=== PATIENT | male | born 1935 | race Caucasian/White ===

== ENCOUNTER 2020-01-20 10:18 | Emergency (ER) | payer MEDICARE, OTHER ==
--- NOTE | 2020-01-20 11:30 | ED Physician Documentation ---
PD HPI ABD PAIN - Stated complaint Stated Complaint: MALE - Chief complaint Chief Complaint: Abd Pain - History obtained from History obtained from: Patient - History of Present Illness Timing - onset: How many days ago (2-3) Timing - duration: Days (2-3) Timing - details: Gradual onset, Still present Quality: Cramping, Aching, Pain Location: RLQ, LLQ, Other Radiation: No: Chest, Lower back Improved by: No: Eating Worsened by: Eating Associated symptoms: Nausea, Constipation (last BM 2 days ago, but was small and firm prior to that.). No: Fever, Vomiting, Diarrhea, Dysuria, Hematuria Similar symptoms before: Has not had sx before Review of Systems Constitutional: denies: Fever, Chills Nose: denies: Rhinorrhea / runny nose, Congestion Throat: denies: Sore throat Respiratory: denies: Cough Musculoskeletal: denies: Neck pain, Back pain Neurologic: reports: Generalized weakness. denies: Focal weakness, Numbness, Near syncope Endocrine: denies: Weight loss PD PAST MEDICAL HISTORY - Past Medical History Past Medical History: No Cardiovascular: None Respiratory: None Endocrine/Autoimmune: None GI: None : None HEENT: None Psych: None Musculoskeletal: None Derm: None - Past Surgical History Past Surgical History: No - Present Medications Home Medications: Ambulatory Orders Medication Instructions Recorded Confirmed Allopurinol [Zyloprim] 300 mg ORAL DAILY 01/20/20 01/20/20 Aspirin [Aspirin EC] 81 mg PO DAILY 01/20/20 01/20/20 Atorvastatin Calcium 20 mg PO DAILY 01/20/20 01/20/20 Citalopram Hydrobromide [Celexa] 20 mg ORAL DAILY 01/20/20 01/20/20 Levothyroxine Sodium 150 mcg PO DAILY 01/20/20 01/20/20 Lisinopril [Zestril] 20 mg PO DAILY 01/20/20 01/20/20 Magnesium Oxide [Mag Ox] 400 mg PO DAILY 01/20/20 01/20/20 Multivitamin [Multiple Vitamins] 1 tab ORAL DAILY 01/20/20 01/20/20 Omeprazole 20 mg PO BID 01/20/20 01/20/20 Polyethylene Glycol 3350 [Miralax] 17 gm PO DAILY PRN #238 gm 01/20/20 Vit A/Vit C/Vit E/Zinc/Copper 2 cap ORAL DAILY 01/20/20 01/20/20 [Preservision Areds Softgel] atenoloL [Atenolol] 25 mg PO DAILY 01/20/20 01/20/20 - Allergies Allergies/Adverse Reactions: Allergies Allergy/AdvReac Type Severity Reaction Status Date / Time No Known Allergies Allergy Unknown Verified 01/20/20 10:30 - Social History Does the pt smoke?: No Smoking Status: Never smoker Does the pt drink ETOH?: No Does the pt have substance abuse?: No - Immunizations Immunizations are current?: Yes - POLST Patient has POLST: No PD ED PE NORMAL - Vitals Vital signs reviewed: Yes - General General: Alert and oriented X 3, No acute distress, Well developed/nourished - HEENT HEENT: Moist mucous membranes, Pharynx benign - Neck Neck: Supple, no meningeal sign, No adenopathy - Cardiac Cardiac: RRR, No murmur - Respiratory Respiratory: Clear bilaterally - Abdomen Abdomen: Normal bowel sounds, Soft, Non tender, Non distended - Rectal Rectal: Other (no hemorrhoids. Brown stool on digit. Minimal stool/ no impaction on digitial rectal) - Derm Derm: Normal color, Warm and dry - Extremities Extremities: Normal ROM s pain, No edema, No calf tenderness / cord - Neuro Neuro: Alert and oriented X 3, No motor deficit, Normal speech Results - Vitals Vitals: Vital Signs - 24 hr 01/20/20 01/20/20 01/20/20 10:31 11:00 13:24 Temperature 37 C Heart Rate 68 97 88 Respiratory 16 17 14 Rate Blood Pressure 162/92 H 134/119 H 169/95 H O2 Saturation 96 98 96 01/20/20 15:08 Temperature 36.8 C Heart Rate 91 Respiratory 20 Rate Blood Pressure 191/92 H O2 Saturation 100 Oxygen O2 Source Room air - Labs Labs: Laboratory Tests 01/20/20 01/20/20 01/20/20 12:20 12:20 12:30 WBC 6.9 RBC 4.17 L Hgb 14.1 Hct 41.9 L MCV 100.5 H MCH 33.8 H MCHC 33.7 RDW 13.5 Plt Count 188 MPV 9.5 Neut # (Auto) 5.0 Lymph # (Auto) 1.4 L [place] # (Auto) 0.4 Eos # (Auto) 0.0 Baso # (Auto) 0.0 Absolute Nucleated RBC 0.00 Nucleated RBC % 0.0 Sodium 140 Potassium 4.4 Chloride 104 Carbon Dioxide 27 Anion Gap 9.0 BUN 14 Creatinine 1.0 Estimated GFR (MDRD) 71 L Glucose 130 H Calcium 9.2 Magnesium 1.8 Total Bilirubin 1.0 AST 23 ALT 21 Alkaline Phosphatase 105 Total Protein 7.2 Albumin 3.7 Globulin 3.5 Albumin/Globulin Ratio 1.1 Lipase 26 Urine Color YELLOW Urine Clarity CLEAR Urine pH 5.5 Ur Specific [place] 1.010 Urine Protein NEGATIVE Urine Glucose (UA) NEGATIVE Urine Ketones NEGATIVE Urine Occult Blood NEGATIVE Urine Nitrite NEGATIVE Urine Bilirubin NEGATIVE Urine Urobilinogen 0.2 (NORMAL) Ur Leukocyte Esterase NEGATIVE Ur Microscopic Review NOT INDICATED Urine Culture Comments NOT INDICATED - Rads (name of study) abd CT Radiology: Prelim report reviewed (no acute process), See rad report PD MEDICAL DECISION MAKING - ED course Complexity details: reviewed results, re-evaluated patient (not any stool out yet (just some of the emena fluid with soft brown/small stools)), considered differential (seems more uncomfortable than from just 2 days of constipation. Can get labs and CT to ensure no other process such as diverticulitis, UTI, focal lesions, other processes. ), d/w patient Departure - Departure Disposition: 01 Home, Self Care Clinical Impression: Bilateral lower abdominal cramping Constipation Qualifiers: Constipation type: unspecified constipation type Qualified Code(s): K59.00 - Constipation, unspecified Condition: Stable Record reviewed to determine appropriate education?: Yes Instructions: ED Constipation Follow-Up: Mohit Bolton MD [Primary Care Provider] - Prescriptions: Polyethylene Glycol 3350 [Miralax] 17 gm PO DAILY PRN #238 gm PRN Reason: Constipation Comments: Use the MiraLAX 17 g dose every 1-2 hours today and into tomorrow as needed to have soft stool movement. Stop at that point as you do not want to over treat it. After that then continue a dose daily for the next week or so just to keep it softened. Your labs and CT scan did not show any acute process at this point so presume just constipation. Recheck if any other symptoms or problems develop. Discharge Date/Time: 01/20/20 15:12
[2020-01-20] MEDS ORDERED: MINERAL OIL ENEMA 133 ML BOTTLE RC STA (12:07)
[2020-01-20] MEDS ORDERED: SODIUM CHLORIDE 0.9% 1,000 ML IV STA (12:07)
[2020-01-20] MEDS ORDERED: polyethylene glycoL 3350 17 GM PACKET PO STA (12:07)
[2020-01-20 12:29] LABS: BASOPHILS % (AUTO) 0.3 %; EOSINOPHILS % (AUTO) 0.3 %; HGB - HEMOGLOBIN 14.1 g/dL (14.0-18.0); LYMPHOCYTES # (AUTO) 1.4 10^3/uL (1.5-3.5); LYMPHOCYTES % (AUTO) 20.9 %; MEAN CORPUSCULAR HEMOGLOBIN 33.8 pg (27.0-31.0); MEAN CORPUSCULAR HGB CONC 33.7 g/dL (32.0-36.0); MEAN CORPUSCULAR VOLUME 100.5 fL (80.0-94.0); MEAN PLATELET VOLUME 9.5 fL (7.4-11.4); MONOCYTES # (AUTO) 0.4 10^3/uL (0.0-1.0); MONOCYTES % (AUTO) 5.2 %; PLT - PLATELET COUNT 188 10^3/uL (130-450); RED BLOOD COUNT 4.17 10^6/uL (4.70-6.10); RED CELL DISTRIBUTION WIDTH 13.5 % (12.0-15.0); WHITE BLOOD COUNT 6.9 x10^3/uL (4.8-10.8)
[2020-01-20 12:42] LABS: ALBUMIN 3.7 g/dL (3.2-5.5); ALBUMIN/GLOBULIN RATIO 1.1 (1.0-2.2); CALCIUM 9.2 mg/dL (8.5-10.3); MAGNESIUM 1.8 mg/dL (1.7-2.8); TOTAL PROTEIN 7.2 g/dL (6.7-8.2)
[2020-01-20 12:54] LABS: BILIRUBIN,URINE NEGATIVE (NEGATIVE); GLUCOSE, URINE (UA) NEGATIVE (NEGATIVE); KETONES,URINE (UA) NEGATIVE (NEGATIVE); LEUKOCYTE ESTERASE, URINE NEGATIVE (NEGATIVE); NITRITE,URINE NEGATIVE (NEGATIVE); OCCULT BLOOD,URINE NEGATIVE (NEGATIVE); PH,URINE 5.5 PH (5.0-7.5); PROTEIN,URINE NEGATIVE (NEGATIVE); UROBILINOGEN,URINE 0.2 (NORMAL) E.U./dL (NORMAL)
[2020-01-20 12:59] LABS: CLARITY,URINE CLEAR (CLEAR)
[2020-01-20] MEDS ORDERED: IOVERSOL 320 100 ML VIAL IVP ONE ×2 (13:16→16:04)
--- NOTE | 2020-01-20 14:13 | CT Report ---
Reason: abd fullness/ lower abd pain Procedure Date: 01/20/2020 Accession Number: [id number] / [id number] Procedure: CT - Abdomen/Pelvis W CPT Code: Final Report FULL RESULT: PROCEDURE: Abdomen/Pelvis W INDICATIONS: abd fullness/ lower abd pain CONTRAST: IV CONTRAST: Optiray 320 ml: 100 PO CONTRAST: *NO PO CONTRAST TECHNIQUE: After the administration of oral and intravenous contrast, 5 mm thick sections acquired from the diaphragms to the symphysis. 5 mm thick coronal and sagittal reformats were acquired. For radiation dose reduction, the following was used: automated exposure control, adjustment of mA and/or kV according to patient size. COMPARISON: None. FINDINGS: Image quality: Excellent. ABDOMEN: Lung bases: Lung bases are clear. Heart size is normal. Large paraesophageal hernia. Solid organs: Liver and spleen are normal in size and enhancement. Gallbladder is unremarkable Biliary system is non dilated. Pancreas enhances normally. No adrenal nodules. Kidneys demonstrate normal size and enhancement, without hydronephrosis. Left kidney superior pole nonobstructing calculus measuring 6 mm. Small renal cysts. Peritoneum and bowel: Bowel loops demonstrate normal wall thickness and caliber. No free fluid or air. Diverticulosis. Normal appendix. Nodes and vessels: No retroperitoneal or mesenteric adenopathy by size criteria. Aorta and inferior vena cava are normal in size. Moderate calcified metastatic plaque. Miscellaneous: No ventral hernias. PELVIS: Genitourinary: Bladder wall thickness is normal. Prostatomegaly. Miscellaneous: No inguinal hernias or adenopathy. Bones: No suspicious bony lesions. No vertebral body compression fractures. Lumbar spine DDD. IMPRESSION: 1. No acute inflammatory process identified. Diverticulosis without diverticulitis. Normal appendix. No free fluid. 2. Large paraesophageal hernia. 3. Nonobstructing left kidney stone. Reviewed by: Armin Britton MD on 01/20/2020 2:12 PM PDT Approved by: Armin Britton MD on 01/20/2020 2:12 PM PDT Station ID: [id number]
[2020-01-20 15:09] VITALS: BP 191/92
== END 2020-01-20 15:12 | disposition home or self-care (01) ==
LOC: ED 10:18
DX: K59.00 Constipation, unspecified (principal); K57.30 Diverticulosis of large intestine without perforation or abscess without bleeding; K44.9 Diaphragmatic hernia without obstruction or gangrene; I48.91 Unspecified atrial fibrillation; I44.7 Left bundle-branch block, unspecified; Z79.82 Long term (current) use of aspirin
CPT/HCPCS: 36415; 74177; 80053; 81003; 83690; 83735; 85025; 93005; 99284; A9270; Q9967; 81001; 87086